=== PATIENT | female | born 2005 | race Two or more races ===

== ENCOUNTER 2025-03-26 20:33 | Emergency (ER) | payer BC ==
[2025-03-26] MEDS ORDERED: Ibuprofen 200 MG TAB ONE (21:00)
[2025-03-26 21:45] LABS: Pregnancy Test - Urine (BHCG) Negative (Negative); Pregu Control Background? CLEAR/WHITE (CLR/WHITE); Pregu Control Bar Appear? YES (CONTROL BAR)
== END 2025-03-26 23:42 | disposition home or self-care (01) ==
LOC: CSHERS 20:33
DX: S33.5XXA Sprain of ligaments of lumbar spine, initial encounter (principal); V89.2XXA Person injured in unspecified motor-vehicle accident, traffic, initial encounter; Y93.89 Activity, other specified
CPT/HCPCS: 72125; 72128; 72131; 81025